=== PATIENT | male | born 1985 | race Caucasian/White ===

== ENCOUNTER 2016-10-26 17:10 | Emergency (ER) | payer BC ==
[~2016-10-26] VITALS: Ht 180.3 cm; Wt 77.3 kg
[~2016-10-26 17:10] MED LIST: FLOMAX 0.40.4 MG/CAP PO; NO HOME MEDICATIONS; NORCO 325 MG-51 TAB PO; PHENERGAN 25 TA25 MG PO; ZOFRAN 4MG T4 MG/TAB PO
[2016-10-26] MEDS ORDERED: SEPTRA DS 8001 TAB (17:29)
[2016-10-26 19:40] LABS: BASO % 0.1 % (0.0-2.0); EOS # 0.2 (0.0-0.7); EOS % 2.1 % (0-4.0); GRAN # 5.8 (1.4-6.5); GRAN % 81.9 % (42.2-75.2); HEMATOCRIT 44.7 % (42.0-52.0); HEMOGLOBIN 16.1 g/dl (13.5-18.0); LYMPH # 0.6 (1.2-3.4); LYMPH % 8.9 % (20.0-51.0); MEAN CELL VOLUME 86 fl (80.0-100.0); MEAN CORPUSCULAR HEMOGLOBIN 31 pg (27.0-31.0); MEAN CORPUSCULAR HGB CONC 36 g/dl (33.0-37.0); MEAN PLATELET VOLUME 10.2 fl (7.4-10.4); MONO # 0.5 (0.1-0.6); MONO % 6.4 % (1.7-9.3); PLATELET COUNT 140 K/mm3 (130-400); RED BLOOD COUNT 5.19 M/mm3 (4.20-5.60); REDCELL DISTRIBUTION WIDTH-CV 11.6 % (11.5-14.5); WHITE BLOOD COUNT 7.1 K/mm3 (4.8-10.8)
[2016-10-26 19:57] LABS: ADJUSTED CALCIUM 9.2 mg/dL (8.4-10.2); ALBUMIN 4.4 gm/dL (3.5-5.0); C-REACTIVE PROTEIN 4.4 mg/dL (0.0-0.9); CALCIUM 9.5 mg/dL (8.4-10.2); CREATININE, serum 1.21 mg/dL (0.66-1.25); MAGNESIUM 1.6 mg/dL (1.6-2.3); POTASSIUM 4.2 mmol/L (3.4-5.0); TOTAL PROTEIN 7.5 gm/dL (6.4-8.2)
[2016-10-26 20:07] LABS: PH 5 (5-8); SQUAMOUS EPITHELIAL None Seen /hpf; URINE APPEARANCE Hazy; URINE BACTERIA None Seen /hpf; URINE BILIRUBIN Negative (NEGATIVE); URINE BLOOD Negative (NEGATIVE); URINE COLOR Yellow; URINE GLUCOSE Negative (NEGATIVE); URINE KETONE 2+ (NEGATIVE); URINE RBC 0-2 /hpf; URINE UROBILINOGEN Negative (NEGATIVE); URINE WBC 0-2 /hpf
[2016-10-26 20:29] LABS: INFLUENZA B NEGATIVE
[2016-10-26] MEDS ORDERED: NORCO 325 MG-51 TAB PO (21:41)
[2016-10-26] MEDS ORDERED: OMNICEF 300MG300 MG PO (21:41)
[2016-10-26 22:03] VITALS: BP 112/70; PULSE 95; TEMP 99.3
== END 2016-10-26 22:06 | disposition home or self-care (01) ==
LOC: COL.ER 17:10
PROVIDERS: Emergency Medicine
DX: N41.9 Inflammatory disease of prostate, unspecified (principal); M79.1 Myalgia; M25.50 Pain in unspecified joint
CPT/HCPCS: J0696; J3010; J7030; Q9967

== ENCOUNTER → 2020-04-26 | Outpatient (CLI) | payer BC ==
[~2020-04-26] MED LIST changes: +OMNICEF 300MG300 MG PO; +SEPTRA DS 8001 TAB
== END ==
LOC: ZLAB.STJ 18:05
DX: Z20.828 Contact with and (suspected) exposure to other viral communicable diseases (principal)

== ENCOUNTER 2022-08-15 08:21 | Day surgery (SDC) | payer BC ==
[2022-08-15] VITALS (9 sets, daily range): BP systolic 110–129; BP diastolic 61–91; PULSE 74–94; TEMP 97.1–98.7
[~2022-08-15] VITALS: Ht 180.3 cm; Wt 86.0 kg
[2022-08-15] MEDS ORDERED: PROTONIX 40MG T40 MG PO (08:59)
[2022-08-15] MEDS ORDERED: CIPRO 500MG TA500 MG PO (09:00)
--- NOTE | 2022-08-15 10:35 | NUR ---
1030 - PT was taken to the OR by Zakia POOLE.
[2022-08-15] MEDS ORDERED: PERCOCET 325 MG1 TA2 PO (12:24)
[2022-08-15] MEDS ORDERED: MOTRIN 600600 MG/TAB PO (12:24)
[2022-08-15] MEDS ORDERED: COLACE 100100 MG/CAP PO (12:28)
--- NOTE | 2022-08-15 12:54 | NUR ---
1245 - Verbal report obtained from VIRGILIO Espinal.
--- NOTE | 2022-08-15 13:06 | NUR ---
1300 - PT arrives from PACU drowsy but oriented; monitors applied and VSS. PT is tolerating ice chips and requested ice water. PT continues to tolerate. x3 procedure sites and clean, dry and intact w/ well approximated edges. Warm blanket applied to abd. PT rates pain 3/10 and refused additional intervention. Side rails x2, call hess is within reach if needed, non-slip socks are on and visitor is present. Will monitor per intervals. 1305 - Lights dimmed for PT comfort.
--- NOTE | 2022-08-15 13:20 | NUR ---
1315 - PT sleeps unless aroused. Call hess within reach and side rails remain. Visitor present. VSS.
--- NOTE | 2022-08-15 13:53 | NUR ---
1330 - VSS. PT is tolerating his snack well. Additional warm blanket applied to abd. Side rails and call hess remain. PT assisted w/ repositioning in bed. 1345 - VSS. PT rates pain 4/10; RN provided PO medication as directed. PT awake and alert. PT educated on postop use of medications; PT and visitor verbalized understanding.
--- NOTE | 2022-08-15 14:24 | NUR ---
1415 - VSS. Monitors and IV disconnected. PT assisted to bedside by RN. He sat for a minute and then was assisted w/ ambulating to bathroom 1:1. PT was provided privacy but unable to void. PT then was assisted back to bed. Monitors reapplied and IV continues at 150ml/hr w/ a current credit of about 150ml. Call hess within reach. Additional warm blankets applied to abd. Vitals obtained post-ambulation supine. Side rails x2 and call hess within reach if needed. Visitor remains present.
--- NOTE | 2022-08-15 14:57 | NUR ---
1445 - VSS. PT states feeling "much better". IVF continue. Sprite provided per PT request. Call hess within reach and side rails x2. Visitor remains present.
--- NOTE | 2022-08-15 15:49 | NUR ---
1520 - IVF have finished. VSS. Monitors and IVF disconnected. PT assisted to bedside before ambulating 1:1 to bathroom. PT voided then back to bed. Call hess within reach and side rails x1. Visitor remains present. 1545 - IV discontinued. Catheter tip intact and pressure bandage applied. NO redness or swelling noted. PT then assisted to sit at bedside. He refused RN assistance changing into personal clothes; call hess remains within reach and visitor states will assist.
--- NOTE | 2022-08-15 16:04 | NUR ---
1600 - DC instructions and educational material reviewed w/ PT who verbalized understanding and signed the related paperwork. Questions answered to PT satisfaction.
--- NOTE | 2022-08-15 16:14 | NUR ---
1610 - PT dismissed from [facility] via wheelchair to PT entrence by Elsa POOLE. PT has DC packet and personal belongings, and was transferred into the care of his , who is driving private car.
== END 2022-08-15 16:15 | disposition home or self-care (01) ==
LOC: SDCO 08:21
DX: K40.90 Unilateral inguinal hernia, without obstruction or gangrene, not specified as recurrent (principal); K21.9 Gastro-esophageal reflux disease without esophagitis; Z79.899 Other long term (current) drug therapy
CPT/HCPCS: C1781; J0690; J1100; J2405; J2704; J3010; J7120

== ENCOUNTER → 2023-01-07 | Outpatient (CLI) | payer BC ==
[~2023-01-07] MED LIST changes: +CIPRO 500MG TA500 MG PO; +COLACE 100100 MG/CAP PO; +MOTRIN 600600 MG/TAB PO; +PERCOCET 325 MG1 TA2 PO; +PROTONIX 40MG T40 MG PO
== END ==
LOC: COL.RAD 07:43
DX: R14.2 Eructation (principal); R10.12 Left upper quadrant pain; R07.89 Other chest pain; R11.0 Nausea
CPT/HCPCS: A9541